=== PATIENT | female | born 1965 | race Caucasian/White ===

== ENCOUNTER 2017-02-16 14:52 | Emergency (ER) | payer OTHER ==
[2017-02-16 16:33] VITALS: BP 106/49; PULSE 69; TEMP 98.1; BMI 25.7
[2017-02-16 16:58] LABS: URINE APPEARANCE Slightly; URINE BILIRUBIN 2+ (NEGATIVE); URINE BLOOD Negative (NEGATIVE); URINE GLUCOSE (UA) Trace (NEGATIVE); URINE KETONE 1+ (NEGATIVE); URINE NITRITE Positive (NEGATIVE); URINE UROBILINOGEN >=8.0 E.U./dl (0.2-1.0)
[2017-02-16 16:59] LABS: URINE COLOR ORANGE; URINE LEUK ESTERASE 3+ (NEGATIVE); URINE PROTEIN 2+ (NEGATIVE)
--- NOTE | 2017-02-16 17:07 | PDOC ---
History of Present Illness - General Chief Complaint: Urinary Problem Stated Complaint: PAIN WHEN URINATING Time Seen by Provider: 02/16/17 17:04 - History of Present Illness Initial Comments: 02/16/17 18:11 Chief complaint: Dysuria History of present illness: Dysuria, urgency, and frequency for 3 days. Frequent UTIs in the past, last of which was May 2016. No fever/chills or back pain. Self-medicating with Pyridium and Augmentin for 3 days without relief Review of systems: As above. Otherwise negative Past medical history: Frequent UTIs, postmenopausal, otherwise healthy on no regular medications Social/family history reviewed and noncontributory Physical exam: Alert and oriented well-developed well-nourished no acute distress cheerful and cooperative Afebrile, vital signs normal Abdomen soft nontender without mass or organomegaly. No CVAT Impression: Recurrent UTI Plan: UA, urine C&S, empiric therapy and follow-up primary physician 2-3 days, sooner if symptoms worsen or fail to improve. Fully ambulatory and in no significant pain or other distress upon discharge to follow-up as directed. Past History - Past Medical History Allergies/Adverse Reactions: Allergies Allergy/AdvReac Type Severity Reaction Status Date / Time No Known Allergies Allergy Verified 12/05/14 07:05 Home Medications: Ambulatory Orders Phenazopyridine HCl [Pyridium] 200 mg PO TID PRN #20 tablet 02/16/17 Sulfamethoxazole/Trimethoprim [Bactrim Ds -] 1 tab PO BID #14 tablet 02/16/17 Other medical history: PT DENIES - Psycho/Social/Smoking Cessation Hx Anxiety: No Suicidal Ideation: No Smoking History: Current every day smoker Number of Cigarettes Smoked Daily: 10 Information on smoking cessation initiated: No Hx Alcohol Use: No Drug/Substance Use Hx: No Substance Use Type: None *Physical Exam - Vital Signs Last Vital Signs Temp Pulse Resp BP Pulse Ox 98.1 F 69 18 106/49 97 02/16/17 14:54 02/16/17 14:54 02/16/17 14:54 02/16/17 14:54 02/16/17 14:54 ED Treatment Course - ADDITIONAL ORDERS Additional order review: Laboratory Results 02/16/17 16:24 Urine Color [place] Urine Appearance Slightly Urine pH 5.0 Ur Specific [place] 1.020 Urine Protein 2+ H Urine Glucose (UA) Trace Urine Ketones 1+ H Urine Blood Negative Urine Nitrite Positive Urine Bilirubin 2+ H Urine Urobilinogen >=8.0 e.u./dl H Ur Leukocyte Esterase 3+ H Medical Decision Making - Medical Decision Making 02/16/17 18:13 [place] shows white blood cells, nitrites, and leukocyte esterase all suggestive of UTI. Culture pending. *DC/Admit/Observation/Transfer Diagnosis at time of Disposition: Urinary tract infection Qualifiers: Urinary tract infection type: acute cystitis Hematuria presence: without hematuria Qualified Code(s): N30.00 - Acute cystitis without hematuria - Discharge Dispostion Disposition: HOME Condition at time of disposition: Stable Admit: No - Prescriptions Prescriptions: Sulfamethoxazole/Trimethoprim [Bactrim Ds -] 1 tab PO BID #14 tablet Phenazopyridine HCl [Pyridium] 200 mg PO TID PRN #20 tablet PRN Reason: urinary discomfort - Patient Instructions Printed Discharge Instructions: DI for Urinary Tract Infection (UTI)
[2017-02-16 19:22] LABS: URINE BACTERIA FEW /hpf (NEGATIVE)
== END 2017-02-16 17:12 | disposition home or self-care (01) ==
LOC: FER 14:52
DX: N30.00 Acute cystitis without hematuria (principal); F17.210 Nicotine dependence, cigarettes, uncomplicated; Z87.440 Personal history of urinary (tract) infections
CPT/HCPCS: 81003; 81015; 87086; 99282-25

== ENCOUNTER 2018-09-30 03:17 | Emergency (ER) | payer OTHER ==
[2018-09-30 03:23] VITALS: BP 110/52; PULSE 80; TEMP 97.7; BMI 25.6
[2018-09-30] MEDS ORDERED: PENICILLIN G BENZATHINE 1,200,000 UNIT/2 ML PFS IM ONE ×2 (03:40→03:43)
[2018-09-30] MEDS ORDERED: IBUPROFEN 600 MG TABLET (FP) PO ONE ×2 (03:40→03:42)
--- NOTE | 2018-09-30 03:40 | PDOC ---
History of Present Illness - General Chief Complaint: Sore Throat Stated Complaint: SWOLLEN LYMPH NODES Time Seen by Provider: 09/30/18 03:33 - History of Present Illness Initial Comments: 09/30/18 06:47 sore throat. no relief with gargling. also body aches Timing/Duration: 4-6 hours Severity: moderate Modifying Factors: worse with: medication Associated Symptoms: denies: fever/chills, nausea/vomiting, rash Past History - Past Medical History Allergies/Adverse Reactions: Allergies Allergy/AdvReac Type Severity Reaction Status Date / Time No Known Allergies Allergy Verified 12/05/14 07:05 Home Medications: Ambulatory Orders Ibuprofen [Motrin -] 600 mg PO TID PRN #15 tablet 09/30/18 COPD: No - Suicide/Smoking/Psychosocial Hx Smoking History: Unknown if ever smoked Number of Cigarettes Smoked Daily: 10 Information on smoking cessation initiated: No Hx Alcohol Use: No Drug/Substance Use Hx: No Substance Use Type: None Review of Systems - Review of Systems All Other Systems: Reviewed and Negative *Physical Exam - Vital Signs Last Vital Signs Temp Pulse Resp BP Pulse Ox 97.7 F 80 16 110/52 L 98 09/30/18 03:18 09/30/18 03:18 09/30/18 03:18 09/30/18 03:18 09/30/18 03:18 - Physical Exam General Appearance: Yes: Nourished, Appropriately Dressed HEENT: positive: Normal Voice, Pharyngeal Erythema, Tonsillar Exudate. negative : Nasal Congestion, Rhinorrhea Neck: positive: Lymphadenopathy (L). negative: Supple Respiratory/Chest: positive: Lungs Clear Cardiovascular: positive: Regular Rhythm Lymphatic: positive: Adenopathy Musculoskeletal: positive: Normal Inspection Medical Decision Making - Medical Decision Making 09/30/18 06:48 pe c/w strep throat abx analgesia *DC/Admit/Observation/Transfer Diagnosis at time of Disposition: Strep throat - Discharge Dispostion Disposition: HOME Condition at time of disposition: Stable - Prescriptions Prescriptions: Ibuprofen [Motrin -] 600 mg PO TID PRN #15 tablet PRN Reason: Pain - Referrals Referrals: Dilshad Wilson [Primary Care Provider] - - Patient Instructions Printed Discharge Instructions: DI for Strep Throat Additional Instructions: Use chloraseptic lozenges/ spray - Post Discharge Activity Forms/Work/School Notes: Back to Work
== END 2018-09-30 03:47 | disposition home or self-care (01) ==
LOC: FER 03:17
DX: J02.9 Acute pharyngitis, unspecified (principal); J02.0 Streptococcal pharyngitis
CPT/HCPCS: 99281-25

== ENCOUNTER 2018-12-23 19:33 | Emergency (ER) | payer OTHER ==
[2018-12-23 19:54] VITALS: BP 104/55; PULSE 77; TEMP 97.9; BMI 27.4
[2018-12-23 20:21] LABS: EPITHELIAL CELLS FEW /hpf
[2018-12-23] MEDS ORDERED: PHENAZOPYRIDINE HCL 100 MG TABLET (FP) PO ONE (20:52)
[2018-12-23] MEDS ORDERED: CIPROFLOXACIN 500 MG TABLET (RESTRICTED TO ID) PO ONE (20:54)
[2018-12-23] MEDS ORDERED: PHENAZOPYRIDINE HCL 100 MG TABLET (FP) ONE (20:56)
[2018-12-23] MEDS ORDERED: CIPROFLOXACIN 250 MG TABLET (RESTRICTED TO ID) PO ONE (20:56)
--- NOTE | 2018-12-24 00:32 | PDOC ---
Documentation entered by Sherrill Lawson SCRIBE, acting as scribe for Jeannette Newberry MD. Jeannette Newberry MD: This documentation has been prepared by the Renny barahona Aiswarya, SCRIBE, under my direction and personally reviewed by me in its entirety. I confirm that the documentation accurately reflects all work, treatment, procedures, and medical decision making performed by me. History of Present Illness - General Chief Complaint: Urinary Problem Stated Complaint: UTI Time Seen by Provider: 12/23/18 20:29 History Source: Patient Exam Limitations: No Limitations - History of Present Illness Initial Comments: 12/23/18 21:15 The patient is a 53 year old female, with no significant PMH, who presents to the emergency department with urinary frequency for the past 2 days. The patient notes burning on urination, no relief with water or cranberry juice. The patient admits to not drinking enough fluid that past few days and may be dehydrated. Patient reports having a similar episode 2 years ago and was diagnosed with a UTI.The patient denies chest pain, shortness of breath, headache and dizziness.Denies fever, chills, nausea, vomit, diarrhea and constipation.Denies urgency and hematuria. Allergies: NKDA Past surgical history:hysterectomy Social history: Current everyday smoking PCP:None reported Past History - Past Medical History Allergies/Adverse Reactions: Allergies Allergy/AdvReac Type Severity Reaction Status Date / Time No Known Allergies Allergy Verified 12/05/14 07:05 Home Medications: Ambulatory Orders Ciprofloxacin HCl [Cipro] 500 mg PO BID #10 tablet 12/23/18 Phenazopyridine HCl [Pyridium] 200 mg PO TID #6 tablet 12/23/18 COPD: No - Suicide/Smoking/Psychosocial Hx Smoking History: Current every day smoker Number of Cigarettes Smoked Daily: 10 Information on smoking cessation initiated: Yes Hx Alcohol Use: No Drug/Substance Use Hx: No Substance Use Type: None Review of Systems - Review of Systems Able to Perform ROS?: Yes Comments:: 12/23/18 21:15 GENERAL/CONSTITUTIONAL: No fever or chills. No weakness. HEAD, EYES, EARS, NOSE AND THROAT: No change in vision. No ear pain or discharge. No sore throat. CARDIOVASCULAR: No chest pain or shortness of breath. RESPIRATORY: No cough, wheezing, or hemoptysis. GASTROINTESTINAL: No nausea, vomiting, diarrhea or constipation. GENITOURINARY: +Urinary frequency and burning. No change in urination. MUSCULOSKELETAL: No joint or muscle swelling or pain. No neck or back pain. SKIN: No rash NEUROLOGIC: No headache, vertigo, loss of consciousness, or change in strength/ sensation. ENDOCRINE: No increased thirst. No abnormal weight change. HEMATOLOGIC/LYMPHATIC: No anemia, easy bleeding, or history of blood clots. ALLERGIC/IMMUNOLOGIC: No hives or skin allergy. *Physical Exam - Vital Signs Last Vital Signs Temp Pulse Resp BP Pulse Ox 97.9 F 77 16 104/55 L 99 12/23/18 19:37 12/23/18 19:37 12/23/18 19:37 12/23/18 19:37 12/23/18 19:37 - Physical Exam Comments: 12/23/18 21:15 GENERAL: Awake, alert, and fully oriented, in no acute distress HEAD: No signs of trauma LUNGS: Breath sounds equal, clear to auscultation bilaterally. No wheezes, and no crackles HEART: Regular rate and rhythm, normal S1 and S2, no murmurs, rubs or gallops ABDOMEN: Soft, nontender, normoactive bowel sounds. No guarding, no rebound. No masses EXTREMITIES: Normal range of motion, no edema. No clubbing or cyanosis. No cords, erythema, or tenderness NEUROLOGICAL: Cranial nerves II through XII grossly intact. Normal speech, normal gait SKIN: Warm, Dry, normal turgor, no rashes or lesions noted. ED Treatment Course - ADDITIONAL ORDERS Additional order review: Laboratory Results 12/23/18 19:45 Urine Color Yellow Urine Appearance Clear Urine pH 5.5 Urine Protein 1+ H Urine Glucose (UA) Negative Urine Ketones 1+ H Urine Blood Negative Urine Nitrite Negative Urine Bilirubin Negative Urine Urobilinogen 0.2 Ur Leukocyte Esterase Trace H Urine RBC 0-2 Urine WBC 10-20 Ur Transition Epith Cell Few Medical Decision Making - Medical Decision Making As noted above, this 53-year-old woman without significant medical problems presents with a few day history of dysuria/urinary urgency. No history of significant abdominal or back pain, vomiting or fever. Patient has occasional UTIs but no history of pyelonephritis or other urinary complications. Exam is noted is normal. Urinalysis shows some rbc's/wbc's with few bacteria. Urine culture and sensitivity has been sent Because of the patient's significant symptoms, patient will be treated empirically for UTI with Cipro 500 mg twice a day for 5 days. She also received Pyridium 200 mg 3 times a day for 2 days. She should drink plenty of fluids and return to the emergency room if she has severe, persistent pain or develops fever/vomiting. She will follow-up with her general doctor within the next several days. She has been told that we will contact her urine culture and sensitivity shows bacteria that is resistant to ciprofloxacin. *DC/Admit/Observation/Transfer Diagnosis at time of Disposition: Urinary tract infection Qualifiers: Urinary tract infection type: acute cystitis Hematuria presence: without hematuria Qualified Code(s): N30.00 - Acute cystitis without hematuria - Discharge Dispostion Disposition: HOME Condition at time of disposition: Stable - Prescriptions Prescriptions: Ciprofloxacin HCl [Cipro] 500 mg PO BID #10 tablet Phenazopyridine HCl [Pyridium] 200 mg PO TID #6 tablet - Referrals - Patient Instructions Printed Discharge Instructions: Urinary Tract Infection Additional Instructions: Drink plenty of water Cipro 500mg twice a day for 5 days Pyridium 200 mg 3 X day for 2 days Return to ER if you have severe pain/high fever/vomiting Follow-up with your doctor as scheduled this coming week - Post Discharge Activity
== END 2018-12-23 21:06 | disposition home or self-care (01) ==
LOC: FER 19:33
DX: N30.00 Acute cystitis without hematuria (principal); F17.210 Nicotine dependence, cigarettes, uncomplicated
CPT/HCPCS: 81003; 81015; 87086; 99281-25

== ENCOUNTER 2020-10-18 17:41 | Emergency (ER) | payer OTHER ==
[2020-10-18 17:49] VITALS: TEMP 97.6; BMI 25.0
[2020-10-18] MEDS ORDERED: PANTOPRAZOLE SODIUM 40 MG VIAL IVPUSH ONE (18:23)
[2020-10-18] MEDS ORDERED: PANTOPRAZOLE SODIUM 40 MG/100 ML BAG IVPB ONE (18:36)
[2020-10-18 18:52] LABS: BASO % 0.5 % (0-2.0); EOS % 1.5 % (0-4.5); HEMATOCRIT 44.9 % (32.4-45.2); HEMOGLOBIN 15.1 GM/dL (10.7-15.3); LYMPH % 34.7 % (8-40); MCH 30.8 pg (25.7-33.7); MCHC 33.6 g/dl (32.0-36.0); MEAN CELL VOLUME 91.8 fl (80-96); MEAN PLT VOLUME 7.7 fl (7.5-11.1); MONO % 7.1 % (3.8-10.2); NEUT % 56.2 % (42.8-82.8); PLATELET COUNT 273 K/MM3 (134-434); RBC 4.89 M/mm3 (3.60-5.2); RDW 12.5 % (11.6-15.6); WHITE BLOOD COUNT 7.7 K/mm3 (4.0-10.0)
[2020-10-18 19:04] LABS: INR 0.99 (0.83-1.09)
[2020-10-18 19:11] LABS: ALBUMIN 3.9 g/dl (3.4-5.0); BLOOD UREA NITROGEN 10.3 mg/dL (7-18)
[2020-10-18 19:14] LABS: CREATININE 0.6 mg/dL (0.55-1.3)
[2020-10-18 19:16] LABS: BILIRUBIN,TOTAL 0.4 mg/dL (0.2-1); TOT PROT 7.6 g/dl (6.4-8.2)
[2020-10-18 20:38] LABS: EPI CELLS 2 /uL (0-25.1); HYALINE CASTS 0 /uL (0-3.1); URINE APPEARANCE CLEAR; URINE BACTERIA 108 /uL (0-1359); URINE BILIRUBIN NEGATIVE (NEGATIVE); URINE COLOR YELLOW; URINE GLUCOSE (UA) NEGATIVE (NEGATIVE); URINE KETONE NEGATIVE (NEGATIVE); URINE LEUK ESTERASE NEGATIVE (NEGATIVE); URINE NITRITE NEGATIVE (NEGATIVE); URINE PROTEIN NEGATIVE (NEGATIVE); URINE RBC 14 /uL (0-23.9); URINE UROBILINOGEN 0.2 mg/dL (0.2-1.0); URINE WBC 4 /uL (0-25.8)
[2020-10-18 22:24] VITALS: BP 129/87; PULSE 89
== END 2020-10-18 22:24 | disposition home or self-care (01) ==
LOC: JER 17:41
PROC: 3E033GC Introduction of Other Therapeutic Substance into Peripheral Vein, Percutaneous Approach (ICD-10-PCS; principal; 2020-10-18)
DX: R10.32 Left lower quadrant pain (principal)
CPT/HCPCS: 36415; 74177-TC; 80053; 81003; 83690; 85025; 85610; 99285-25; Q9967